=== PATIENT | female | born 2000 | race African-American/Black ===

== ENCOUNTER 2022-01-17 00:01 | Emergency (ER) | payer OTHER ==
[2022-01-17] MEDS ORDERED: Acetaminophen 500 MG TAB ONE (01:30)
[2022-01-17] MEDS ORDERED: Ibuprofen 200 MG TAB ONE (01:30)
== END 2022-01-17 03:34 | disposition home or self-care (01) ==
LOC: CSHERS 00:01
DX: R51.9 Headache, unspecified (principal)
CPT/HCPCS: 99283